=== PATIENT | female | born 1950 | race Caucasian/White ===

== ENCOUNTER 2023-09-14 09:03 | Day surgery (SDC) | payer OTHER ==
[2023-09-08 15:13] LABS: Absolute Lymphocytes (CBC) 2.3 K/uL (0.7-4.9); Hematocrit 39.2 % (36.0-45.0); Lymphocytes % 25.4 % (15.3-44.8); MCV 94.1 fL (80-100); MPV 8.7 fL (7.6-11.3); Platelets 264 thou/uL (152-406); RBC Red Blood Cell Count 4.16 M/uL (3.86-4.86)
[2023-09-08 15:14] LABS: Protime INR 1.03
[2023-09-08 15:26] LABS: Potassium 3.9 mEq/L (3.5-5.1)
--- NOTE | 2023-09-08 23:27 | RAD REPORT ---
EXAM DESCRIPTION: RAD - Chest Pa And Lat (2 Views) - 09/08/2023 3:20 pm CLINICAL HISTORY: Pre op pending bladder tumor resection. Hypertension COMPARISON: No comparisons TECHNIQUE: PA and lateral views of the chest were obtained. FINDINGS: The lungs are clear. Mild hyperinflation may suggest mild COPD. Heart size is normal and c entral vasculature is within normal limits. No pleural effusion or pneumothorax seen. No acute bony f inding noted. IMPRESSION: No acute cardiopulmonary process.
--- NOTE | 2023-09-09 15:14 | EKG ---
Test Date: 2023-09-08 Test Time: 15:47:01 Building Maintenance Repairer: CHARLOTTE MEASUREMENT RESULTS: Intervals: Rate: 62 NC: 154 QRSD: 78 QT: 448 QTc: 454 [place]: P: 68 NC: 154 QRS: 54 T: 71 INTERPRETIVE STATEMENTS: Normal sinus rhythm Normal ECG No previous ECG available for comparison Electronically Signed On 09-09-23 15:11:07 SENIOR RESERVATIONS AGENT by Romeo Huerta
[2023-09-14] MEDS ORDERED: Ringers Lactate 1,000 ML IV ONE (09:18)
[2023-09-14] MEDS ORDERED: CEFAZOLIN SODIUM 2 GM/VIAL ONE (10:02)
[2023-09-14] MEDS ORDERED: MIDAZOLAM HCL 2 MG/2 ML INJ ONE (10:36)
[2023-09-14] MEDS ORDERED: LIDOCAINE 1% MPF 5 ML VIAL ONE (10:36)
[2023-09-14] MEDS ORDERED: ONDANSETRON 4 MG/2 ML VIAL ONE (10:36)
[2023-09-14] MEDS ORDERED: propofoL 200 MG/20 ML VIAL IV ONE (10:36)
[2023-09-14] MEDS ORDERED: FENTANYL CITR 100 MCG/2 ML ONE (10:36)
[2023-09-14] MEDS ORDERED: EPHEDRINE SULF 50 MG/ML VIAL ONE (11:58)
[2023-09-14] MEDS: GEMCITABINE HCL 26.3 ML IS ONE ×2 (12:00→12:05)
[2023-09-14] MEDS: HYDROMORPHONE HCL 1 MG/ML INJ ONE ×2 (12:45→12:53)
[2023-09-14 13:01] VITALS: O2SAT 95
[2023-09-14] MEDS ORDERED: PHENAZOPYRIDINE 100MG TAB PO ONE (13:11)
[2023-09-14] MEDS ORDERED: HYDROCODONE/APAP 7.5/325 MG TAB ONE (13:37)
[2023-09-14 14:13] VITALS: BP 124/60; TEMP 97
--- NOTE | 2023-09-14 18:38 | OP ---
Surgeon: LEESA REEVES Preoperative Diagnoses: 1.Papillary urothelial lesion approximately 0.5 cm in diameter. 2.History of Ta low-grade recurrent urothelial carcinoma. Postoperative Diagnoses: 1.Papillary urothelial lesion approximately 0.5 cm in diameter. 2.History of Ta low-grade recurrent urothelial carcinoma. Principal Procedures: 1.Cystoscopy with bladder biopsy and fulguration. 2.Instillation of intravesical gemcitabine 2 g in 50 cc normal saline. 3.Placement of urethral Bates catheter. Indication For Procedure: Ms. Montoya is a 73-year-old woman, who saw me initially in evaluation in the Urology Clinic and underwent cystoscopic evaluation on 08/30/2023 revealing a papillary urothelial n eoplasm in her dome. She had been treated at the [facility] and had an ex tensive history, records which I reviewed today after being delivered by the patient for my review. Extensive record review was undertaken, which required about 10 additional minutes preoperatively rev ealed the following: October of 2019, initial diagnosis of Ta low-grade urothelial carcinoma. February of 2020, recurrence of Ta low-grade urothelial carcinoma. May of 2020, completion of an induction course of gemcitabine/docetaxel chemotherapy. August of 2020, recurrence of Ta low-grade urothelial carcinoma. On 11/14/2020, TURBT performed again with low-grade urothelial carcinoma. On 01/31/2021, induction course of mitomycin-C completed. All care performed at the [facility]. On 05/22/2020, CT urogram. Impression: No filling defects noted throughout the bilateral renal domonique ecting systems or urinary bladder. No evidence of metastatic disease. On 09/01/2023. CT urography. Findings: No filling defects within the genitourinary system noted. Impression: A 6.1 cm low-density mass within the uterus, presumably a fibroid. Pelvic ultrasound is recommended. On 09/01/2023, CT lung cancer screening. Impression: Clear lungs. Procedure In Detail: The patient was consented in the preoperative holding area before being transfe rred to the operative suite where general anesthesia was induced. She was given Ancef 2 g IV antimic robial prophylaxis, and pneumo boots were provided for DVT prophylaxis. She was placed in the lithot romeo position, padded and secured to the table appropriately, and her genitalia was prepped with Hibic lens before being draped in standard fashion. The case was begun using a 22-[place] rigid cystoscope to traverse the urethra and into the bladder with ease. The bladder was decompressed of fluid and ur ine before being refilled with sterile water and surveyed in its entirety. Other than the solitary 0 .5 cm papillary urothelial lesion previously observed on outpatient cystoscopy within the dome of the bladder, no additional papillary urothelial lesions were noted. The lesion had not increased signif icantly in size since its diagnosis just a few weeks ago. As a result, I placed a cold cup biopsy fo rceps and performed biopsy and removal of the entire papillary lesion, which was sent for pathologic analysis. I additionally sampled the mucosa and ensured the likelihood of muscularis propria assessm ent by taking an additional biopsy. Afterwards, I fulgurated the periphery and the base of the lesio n in order to ensure hemostasis. Once hemostatic, I removed the cystoscope and placed an 18-[place]orese F oley catheter into her bladder with ease and decompressed it of the sterile water and urine, inflatin g the balloon with 20 cc of sterile water. I then retrograde instilled 2 g of gemcitabine in 50 cc n ormal saline into her bladder with ease. I placed towels within her introitus and around her genital ia and fluid impermeable drapery around the catheter in the bag to prevent exposure to her skin. She was then taken out of the lithotomy position, awakened from general anesthesia, transferred to a [facility] etcher, and then transferred to the recovery room in good condition. Complications: None. Discharge Disposition: Given the patient's multifocal recurrent urothelial carcinoma refractory to a n induction course of gemcitabine/docetaxel chemotherapy and subsequent mitomycin-C intravesical chem otherapy, the patient must be characterized as intermediate risk disease and thus should be treated w ith an induction course of intravesical BCG. We will discuss this with the patient on followup and s chedule accordingly. The patient will also require gynecologic evaluation and transvaginal ultrasono graphy of the uterine mass observed on CT scan. ANNIE/JOSIE Voice ID: [id number] Report ID: [id number]
== END 2023-09-14 14:00 | disposition home or self-care (01) ==
LOC: OR 09:03
PROVIDERS: ATTEND Urology
PROC: 3E0K705 Introduction of Other Antineoplastic into Genitourinary Tract, Via Natural or Artificial Opening (ICD-10-PCS; 2023-09-14)
PROC: 0TBB8ZX Excision of Bladder, Via Natural or Artificial Opening Endoscopic, Diagnostic (ICD-10-PCS; principal; 2023-09-14 10:00)
DX: C67.1 Malignant neoplasm of dome of bladder (principal); N30.90 Cystitis, unspecified without hematuria; Z85.51 Personal history of malignant neoplasm of bladder
CPT/HCPCS: 52204; 51720; 93005; 87088; 85025; 87086; 80048; 36415; 85610; 88305; 71046; J9201; J2704; J2001; J2250; J3010; J1170; J2405; J7120

== ENCOUNTER 2023-11-04 07:45 | Day surgery (SDC) | payer OTHER ==
[2023-11-03 10:25] LABS: Specific Gravity 1.016 (1.005-1.030); Urine Bilirubin NEGATIVE (Negative); Urine Blood Negative (Negative); Urine Clarity Clear (Clear); Urine Color Light-Yellow (Yellow); Urine Glucose NEGATIVE (Negative); Urine Protein NEGATIVE (Negative); Urine Urobilinogen Normal (Normal); Urine pH 5.5 (5.0-7.0)
[2023-11-03 10:29] LABS: Absolute Lymphocytes (CBC) 1.7 K/uL (0.7-4.9); Hematocrit 38.3 % (36.0-45.0); Lymphocytes % 20.3 % (15.3-44.8); MCV 93.7 fL (80-100); Platelets 240 thou/uL (152-406); RBC Red Blood Cell Count 4.09 M/uL (3.86-4.86)
[2023-11-04] MEDS ORDERED: Ringers Lactate 1,000 ML IV ONE (08:07)
[2023-11-04] MEDS ORDERED: SCOPOLAMINE HYDROBROMIDE PATCH TD ONE (08:07)
[2023-11-04] MEDS ORDERED: ROCURONIUM 50 MG/5 ML VIAL IV ONE (10:39)
[2023-11-04] MEDS ORDERED: LIDOCAINE 2% MPF 5 ML VIAL ONE (10:39)
[2023-11-04] MEDS ORDERED: FENTANYL CITR 100 MCG/2 ML ONE ×2 (10:39→14:04)
[2023-11-04] MEDS ORDERED: ONDANSETRON 4 MG/2 ML VIAL ONE (10:39)
[2023-11-04] MEDS ORDERED: propofoL 200 MG/20 ML VIAL IV ONE (10:39)
[2023-11-04] MEDS ORDERED: HYDROMORPHONE HCL 1 MG/ML INJ ONE (10:51)
[2023-11-04] MEDS: CEFAZOLIN SODIUM 2 GM/VIAL ONE ×2 (10:55→11:30)
[2023-11-04] MEDS ORDERED: BUPIVACAINE 0.25% PF 30 ML VIAL ONE (11:09)
[2023-11-04] MEDS ORDERED: MIDAZOLAM HCL 2 MG/2 ML INJ ONE (11:13)
[2023-11-04] MEDS ORDERED: EPHEDRINE SULF 50 MG/ML VIAL ONE (11:34)
[2023-11-04] MEDS ORDERED: NS 0.9% VIAL 10 ML ONE (12:33)
[2023-11-04] MEDS ORDERED: VECURONIUM 10 MG/VIAL IV ONE (12:33)
[2023-11-04] MEDS: Ringers Lactate 1,000 ML IV ONE ×2 (13:45→13:50)
[2023-11-04] MEDS ORDERED: GLYCOPYRROLATE 0.2 MG/ML SYR ONE (14:18)
[2023-11-04] MEDS ORDERED: PROMETHAZINE INJ 25 MG/ML AMP IV PRN (14:39)
[2023-11-04] MEDS ORDERED: MEPERIDINE HCL 25 MG/ML SYR IM PRN (14:39)
[2023-11-04] MEDS ORDERED: HYDROCODONE/APAP 5/325 MG TAB PO PRN (14:39)
[2023-11-04] MEDS ORDERED: IBUPROFEN 200 MG TAB PO PRN (14:39)
--- NOTE | 2023-11-04 14:43 | P.BOP ---
Preoperative diagnosis: pelvic pain, leiomyoma, h/o cervical dysplasia Postoperative diagnosis: same, uterine prolapse Primary procedure: TLH BSO wshings, USLS colpopexy cystoscopy Chairman & Ceo: Suzy Lauren Estimated blood loss: 50 Specimen: uterus tubes and ovaries Findings: large leiomyoma: left fundal anterior wall 8cm myoma, morcellated Anesthesia: General Complications: None Fluids & blood products: UO 250 Transferred to: Recovery Room Condition: Good
[2023-11-04] MEDS ORDERED: HYDROCODONE/APAP 5/325 MG TAB ONE (16:58)
[2023-11-04 17:19] VITALS: BP 126/60; TEMP 98.5; O2SAT 96
[2023-11-05] MEDS ORDERED: HOME MED 1 EA UNK (Fiber [Fiber Diet] 1 EACH Tablet) PO SCH (09:00)
[2023-11-05] MEDS ORDERED: AMLODIPINE 10 MG TAB PO SCH (09:00)
[2023-11-05] MEDS ORDERED: HOME MED 1 EA UNK (Rosuvastatin Calcium [Rosuvastatin Calcium] 40 MG Tablet) PO SCH (09:00)
[2023-11-05] MEDS ORDERED: HOME MED 1 EA UNK (Citalopram Hydrobromide [Celexa] 40 MG Tablet) PO SCH (09:00)
[2023-11-05] MEDS ORDERED: [UNRECOGNIZED DRUG - OTHER] PO SCH (09:00)
[2023-11-05] MEDS ORDERED: HOME MED 1 EA UNK (Multivitamin [Multivitamin] Tablet) PO SCH (09:00)
[2023-11-05] MEDS ORDERED: HOME MED 1 EA UNK (Losartan Potassium [Losartan Potassium] 100 MG Tablet) PO SCH (09:00)
--- NOTE | 2023-11-05 09:27 | OP ---
Date of Procedure: 11/04/2023 Surgeon: Mayra Beltran MD Programmer Analyst Consultant: Suzy Vilchis. Preoperative Diagnoses: Pelvic pain, leiomyoma, and history of cervical dysplasia. Patient also wit h history of recurrent bladder cancer. Postoperative Diagnoses: Pelvic pain, leiomyoma, and history of cervical dysplasia. Patient also wi th history of recurrent bladder cancer and uterine prolapse. Procedures Performed: 1.Total laparoscopic hysterectomy, bilateral salpingo-oophorectomy, pelvic washings. 2.Uterosacral ligament suspension, colpopexy, bilateral; and cystoscopy. Specimens: Uterus, tubes, ovaries, and pelvic washings. Findings: Large leiomyoma, left fundal anterior wall about 8-10 cm. This was morcellated vaginally without any intraperitoneal contamination. Ovaries were unremarkable. Uterus fairly unremarkable ot herwise. No peritoneal or omental lesions. Her appendix appeared to be normal, liver as well was un remarkable. Her uterine prolapse was -2. So after the hysterectomy, she needed an uteros acral suspension to treat this current apical prolapse as well as prevent further future problems. Anesthesia: General endotracheal. Complications: No complications. Estimated Blood Loss: 50. Urine Output: 250. Disposition: Transferred to the recovery room in stable condition. Indications For Procedure: Patient is a 73-year-old female. The patient was self-referred, but is a patient of Dr. Barry, urologist, who did recurrent bladder tumor resections and she is due to have BCG intravesical therapy. In the past, she has received chemotherapy for her bladder cancer. She has been complaining of pelvic pressure and pain, especially in the lower pelvis; occasional uppe r abdominal discomfort as well. Has urinary frequency. She had requested for evaluation of her pelv ic mass, as it was incidentally found on CT scan during her bladder cancer diagnosis and treatment. So, transvaginal ultrasound was performed to assess the mass. It appeared to be a leiomyoma arising from the uterus, left sided. Did an endometrial sampling procedure, which was not diagnostic of any leiomyosarcoma or endometrial atypia or malignancy. The specimen in fact is suboptimal in the amount that was able to be retrieved. Reviewed with the patient about expected benign nature of the tumor; however, given her pelvic pressu re and pain symptoms, the treatment of preference would be a hysterectomy with removal of tubes and o varies, and removal of the entire mass. Patient understood the benefits and risks of this procedure and wanted to proceed with this at this time before she went back for her local intravesical therapy. She was consented and taken back to the OR. Her was present by her side on the morning of the procedure. Description Of Procedure: She was placed in a supine fashion on the operating table. General anesth esia was given. She was placed in a dorsal lithotomy position. Abdomen was prepped with ChloraPrep. Vulva, vagina, and perineum with Betadine and draped in a sterile fashion. SCDs were started. Arm s were tucked by the side, positioning checked. Time-out performed. 2 g of Ancef were given and pro cedure started. A speculum was placed to expose the cervix. Anterior lip was grasped with 2 Allis c lamps, dilated to 16-Kyrgyz and a large cup uterine manipulator was introduced into the uterus withou t any problems. There was a small degree of uterine apical laxity, but it was not very evident at th e beginning of the case regarding the uterine prolapse, but after hysterectomy was complete, it was v jeff obvious that the apical support has been compromised causing apical prolapse. Once the VCare cup was positioned around the cervix and manipulator in the uterus, Bates was placed a nd attached for retrograde filling and this area was draped. 1 cm supraumbilical incision in the midline was made in a curvilinear fashion using an 11 blade and f ascia incised, tagged with 0 Vicryl sutures. Peritoneum was entered sharply. Mireya introduced and after adequate insufflation, the site of entry was checked and was unremarkable. Two [address] aced in the right and left lower quadrants and a 10 suprapubic port. The peritoneal cavity was surve yed and findings are as above. There were adhesions of the sigmoid colon to the left lateral wall, e specially at the pelvic brim. These adhesions first had to be taken down. Lysis of sigmoid adhesions epiploicae were used to retract the colon gently from the right lateral as pect and the left lateral aspect and I was able to take down all the adhesions from above the level n ear the natural attachment of the sigmoid all the way down into the upper pelvis, releasing the IP li gament and exposing it completely. The peritoneum above and below the round ligament was incised sha rply and the round ligament was taken down with the help of LigaSure and after dissecting and isolati ng the IP ligament medially and laterally between the ureter and the IP, took this down with the help of the LigaSure. Then, broad ligament anteriorly and posteriorly were opened up and dissected all t he way down to the level of the bladder, exposing the vessels and skeletonizing them. Peritoneum was taken posteriorly to the cup. Anteriorly, bladder was dissected. There was a small amount of infla mmatory adhesions, but these did not appear to be acute. The plane between the bladder and the uteru s was developed carefully after filling and draining the bladder. The borders were defined and bladd er was dissected safely on the anterior vaginal wall below the level of the cup. On the opposite side, similar dissection was performed taking down the round ligament, isolating the IP, taking it down the LigaSure, and opening of the anterior and posterior broad ligaments, especiall y dissecting the posterior broad ligament laterally to lift the ureter fall to the side and coming do wn to the level of the posterior cuff. The uterosacral attachment was not very significant on the le ft side as compared to the right side and there was laxity noted. The ureter was dissected laterally, isolated the uterine vessels and anterior lip of bladder, periton eum during and dissection to the opposite side and bladder dissected fully inferior to the cup on the anterior vaginal wall. The vessels and cardinal ligament on the left and right were taken down with the help of the LigaSure and scissors. Then, the colpotomy was performed with a monopolar hook blade and after detaching the specimen, the specimens were pulled out with [place] clamps from below. Vaginal morcellation was performed by exposing with Amalia and morcellating the uterine specimen open to expose the large fibroid and the fibroid had to be morcellated significantly in order for me to e xtract the uterine specimen outside the body. However, there was no spillage. The uterine serosa wa s left intact and this was visualized as the camera was left in place during the morcellation process . Decided to not place the bag as it was difficult to be accommodated into the vaginal canal, which was narrow being difficult to cut the fibroid without risking or damaging the bag anyways. Once the specimen was retrieved, vaginal occluder was placed and I went back, re-scrubbed and gowned and gloved to the laparoscopic part and cuff closure was performed in an interrupted fashion with 0 P DS sutures, 2 angled simple sutures, and 3 [id number] in the middle with good tissue closure us ing connective tissue in the anterior and posterior yusuf. Uterosacral ligament suspension colpopexy. Vaginal occluder was removed and a large EEA sizer was pl aced into the vagina. The anterior wall of the vagina was further dissected down taking bladder down sharply with the help of scissors and occasional bipolar cauterization as needed from the midline as well as to the sides and once the entire anterior wall was well visualized, then uterosacral ligamen ts were visualized. After picking up the uterosacral ligament with atraumatic graspers, 2-0 V-Loc was used to pass 2 sutu res in a continuous running fashion through the right uterosacral and then attached to the vaginal cu ff starting at the right lateral closure of the cuff and a second layer of closure from the posterior rectovaginal fascia was done to the anterior precervical fascia to imbricate the first closure as we ll as to bring 2 layers of fascia and the anterior-posterior yusuf of the vagina together to buttress the apical closure. Then, on the left lateral margin, suture was taken in a continuous running fash ion, passed through the uterosacral ligament and ran back up and cut on the vaginal wall. There was excellent suspension of the apex on vaginal exam as well as laparoscopic visualization. Rob th ureters appeared to have peristalsis without any evidence of obstruction or kinking. Cystoscopy was performed with 17-Kyrgyz sheath, 30 degree lens with normal saline. Small jets of uri ne from both ureteric orifices were well visualized. Her urine was concentrated. No evidence of any trauma to the bladder and bladder was filled with at least 3 cm of fluid. The dome of the bladder, the lateral yusuf were all well visualized. The trigone was well visualized. Small amount of squamo us metaplasia was seen in the proximal part of the trigone. Scar noted at the top of the trigone to the patient's right. No tumor was grossly visualized on my examination. The bladder was drained. U rethra was unremarkable as well. The vaginal manipulator was removed or the sizer was removed. After changing the gloves, the trocars were visualized and removed. The gas was desufflated. Fascia at the umbilicus was closed with the help of the tagged 0 Vicryl sutures tied to each other in a sim ple 0 Vicryl stitch at the suprapubic site. Skin closure with 5-0 interrupted Monocryl. Instrument, needle, and sponge counts were correct at the end of the case. Patient tolerated the procedure well . She was recovered from anesthesia and taken to PACU in stable condition to be discharged after voi ding trial and tolerating diet and ambulating with good pain control. All findings were discussed wi th the . She has a 1 week postop appointment. Instructions have been given and prescription. CHRIS/JOSIE Voice ID: [id number] Report ID: [id number]
== END 2023-11-04 17:30 | disposition home or self-care (01) ==
LOC: OR 07:45
PROVIDERS: ATTEND Obstetrics & Gynecology
PROC: 0UT24ZZ Resection of Bilateral Ovaries, Percutaneous Endoscopic Approach (ICD-10-PCS; 2023-11-04)
PROC: 0UT74ZZ Resection of Bilateral Fallopian Tubes, Percutaneous Endoscopic Approach (ICD-10-PCS; 2023-11-04)
PROC: 0USG4ZZ Reposition Vagina, Percutaneous Endoscopic Approach (ICD-10-PCS; 2023-11-04)
PROC: 0UT94ZZ Resection of Uterus, Percutaneous Endoscopic Approach (ICD-10-PCS; principal; 2023-11-04 09:30)
DX: R10.2 Pelvic and perineal pain (principal); D25.9 Leiomyoma of uterus, unspecified; Z85.51 Personal history of malignant neoplasm of bladder; Z87.410 Personal history of cervical dysplasia
CPT/HCPCS: 58571; 57283; 85025; 36415; 86900; 86850; 86901; 88304; 88307; 81003; A4216; J2704; J2001; J2250; J3010 ×2; J1170; J2405; J7120 ×2

== ENCOUNTER 2024-03-07 10:40 | Day surgery (SDC) | payer OTHER ==
[2024-02-22 11:58] LABS: Absolute Basophils 0.1 K/uL (0-0.5); Absolute Eosinophils 0.4 K/uL (0-0.5); Absolute Lymphocytes (CBC) 2.6 K/uL (0.7-4.9); Absolute Monocytes 1.5 K/uL (0.1-1.3); Absolute Neutrophil 5.8 K/uL (1.8-8.0); Basophils % 1.2 % (0-1.3); Eosinophils % 3.7 % (0-4.4); Hematocrit 39.5 % (36.0-45.0); Hemoglobin 13.1 g/dL (12.0-15.0); Lymphocytes % 25.4 % (15.3-44.8); MCH 31.4 pg (27.0-35.0); MCHC 33.2 g/dL (32.0-36.0); MCV 94.4 fL (80-100); MPV 9.5 fL (7.6-11.3); Monocytes % 14.2 % (3.3-12.3); Neutrophils % 55.5 % (41.7-73.7); Platelets 265 thou/uL (152-406); RBC Red Blood Cell Count 4.19 M/uL (3.86-4.86); Red Cell Distribution Width 13.4 % (12.1-15.2)
[2024-02-22 12:08] LABS: PT Prothrombin Time 10.9 SECONDS (9.5-12.5); Protime INR 0.99
[2024-03-07] MEDS: Ringers Lactate 1,000 ML IV ONE (11:13)
[2024-03-07] MEDS ORDERED: LIDOCAINE 1% MPF 5 ML VIAL ONE (12:41)
[2024-03-07] MEDS ORDERED: propofoL 200 MG/20 ML VIAL IV ONE (12:41)
[2024-03-07] MEDS ORDERED: FENTANYL CITR 100 MCG/2 ML ONE (12:42)
[2024-03-07] MEDS ORDERED: ONDANSETRON 4 MG/2 ML VIAL ONE (12:45)
[2024-03-07] MEDS ORDERED: dexAMETHasone 10 MG/ML VIAL ONE (12:46)
[2024-03-07] MEDS: CEFAZOLIN SODIUM 2 GM/VIAL ONE (12:51)
[2024-03-07] MEDS ORDERED: CODEINE 30MG/APAP 300MG TAB PO PRN (12:56)
[2024-03-07] MEDS ORDERED: PHENAZOPYRIDINE 100MG TAB PO ONE (12:56)
[2024-03-07] MEDS ORDERED: EPHEDRINE SULF 50 MG/ML VIAL ONE (13:07)
[2024-03-07] MEDS: Gemcitabine 26.3 ML IV ONE (13:23)
[2024-03-07] MEDS ORDERED: OXYBUTYNIN ER 5 MG TAB PO ONE (14:00)
[2024-03-07] MEDS: OXYBUTYNIN ER 5 MG TAB PO ONE (14:01)
[2024-03-07] MEDS ORDERED: Ringers Lactate 1,000 ML IV ONE (15:07)
[2024-03-07 16:05] VITALS: BP 138/56; TEMP 97.2; O2SAT 99
--- NOTE | 2024-03-08 00:21 | OP ---
Surgeon: LEESA REEVES Preoperative Diagnoses: 1. Recurrent bladder tumor. 2. History of Ta low-grade urothelial carcinoma, recurrent. 3. History of induction of mitomycin C and gemcitabine and docetaxel induction course. Postoperative Diagnoses: 1. Recurrent bladder tumor. 2. History of Ta low-grade urothelial carcinoma, recurrent. 3. History of induction of mitomycin C and gemcitabine and docetaxel induction course. Principal Procedures: 1. Cystoscopy with bladder biopsy and fulguration. 2. Insertion of urethral Bates catheter. 3. Instillation of intravesical gemcitabine 2 g in 50 cc normal saline chemotherapy. Indication For Procedure: Ms. Montoya presented to the Urology Clinic having been seen and treated several times with an outside urologist at the [facility] with frequent recurrent Ta low-grade urothelial carcinoma. She underwent an induction course of gemcitabine and docetaxel chemotherapy and nevertheless had recurrences as of August 2020. She was then treated with an induction course of mitomycin C in January 2021. 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 She was recommended to receive an induction course of BCG, but she failed to complete this. She followed up for her 3-month surveillance cystoscopy in a delayed fashion in February 15 of this year and revealed a solitary recurrence at the anterior bladder neck. As a result, she was counseled again on the need for removal of that tumor and again recommended for an induction course of intravesical BCG. She because of the localization of the tumor in a very challenging location in the bladder neck, this was not amenable to clinic based biopsy and fulguration. Procedure In Detail: The patient was consented in the preoperative holding area before being transferred to the operative suite where general anesthesia was induced. She was given Ancef 2 g IV antimicrobial prophylaxis, and pneumo boots were provided for DVT prophylaxis. She was placed in the lithotomy position, padded and secured to the table appropriately. Her genitalia were prepped with Hibiclens and she was draped in standard fashion. The case was begun using a 22-Filipino rigid cystoscope to traverse the urethra and into the bladder with ease. The bladder was decompressed of fluid and urine and surveyed in its entirety. No signs of recurrent tumors were noted throughout the bladder with the exception of the left anterior bladder neck, which was only observed on retroflexion view given its very challenging location. The tumor measured about 0.5 cm in diameter; so I utilized the cold cup biopsy forceps and was able to grasp the entirety of the lesion and remove it intact. This was sent for pathologic analysis. I then utilized a Bugbee electrode at a cautery setting of 30 and carefully fulgurated the base of the lesion and any bleeding vessels around the periphery until it was completely hemostatic. I then switched to a 70-degree lens and surveyed the entirety of the bladder neck to ensure completion of removal of any and all bladder tumors, and no residual tumor was noted. As a result, I decompressed her bladder of fluid and urine and removed the cystoscope. I then placed an 18-Filipino catheter into her bladder and allowed it to decompress. Once decompressed, I then instilled 2 g of gemcitabine in 50 cc normal saline retrograde into her bladder with ease. Of note, only about 5 to 7 cc of sterile water was placed into the balloon because the tumor was at the bladder neck and I wanted to minimize the balloon obscuring the treatment with the chemotherapy. I placed a towel tip within her introitus and then draped off the remainder of her introitus with towels. The catheter with the chemotherapy instilled was clamped using a Candice clamp and connected to a leg bag for ease of subsequent decompression. The entirety of the setup was placed within fluid impermeable drapery, and she was taken out of the lithotomy position. She was then awakened from general anesthesia before being transferred to a stretcher, where she was then transferred to the recovery room in good condition. Complications: None. Discharge Disposition: She should follow up in the Urology Clinic within the next 1 to 2 weeks to discuss the results of the pathology and see if she is now ready to proceed with an induction course of intravesical BCG immunotherapy. Given the bladder recurrence, she would benefit from repeat upper tract imaging, which we will plan following completion of the BCG in preparation for subsequent followup cystoscopy in about 3 months. ANNIE/JOSIE Voice ID: [id number] Report ID: [id number] TRINO
== END 2024-03-07 15:46 | disposition home or self-care (01) ==
LOC: OR 10:40
PROVIDERS: ATTEND Urology
PROC: 3E0K705 Introduction of Other Antineoplastic into Genitourinary Tract, Via Natural or Artificial Opening (ICD-10-PCS; 2024-03-07)
PROC: 0TBC8ZX Excision of Bladder Neck, Via Natural or Artificial Opening Endoscopic, Diagnostic (ICD-10-PCS; principal; 2024-03-07 13:45)
DX: C67.5 Malignant neoplasm of bladder neck (principal); I10 Essential (primary) hypertension; E78.5 Hyperlipidemia, unspecified; F32.A Depression, unspecified
CPT/HCPCS: 87088; 85025; 87086; 80048; 36415; 85610; 88305; 52204; 51720; J9201 ×2; J2704; J2001; J3010; J1100; J2405; J7120 ×2